=== PATIENT | male | born 1995 | race Caucasian/White ===

== ENCOUNTER 2024-04-14 19:52 | Emergency (ER) | payer OTHER ==
[~2024-04-14] VITALS: Ht 185.4 cm; Wt 119.7 kg
[2024-04-14] MEDS ORDERED: ASPIRIN 81 MG CHEW PO ONE (20:15)
[2024-04-14] MEDS ORDERED: NITROGLYCERIN PACKET TOP ONE (20:15)
[2024-04-14 20:28] LABS: BASOPHILS 0.7 % (0-2); EOSINOPHILS 1.2 % (0-6); HEMATOCRIT 42.4 % (35.0-50.0); HEMOGLOBIN 14.7 g/dL (12.0-18.0); LYMPHOCYTES 33.3 % (24-44); MCH 30.2 (27-36); MCHC 34.7 g/dl (30-36); MCV 86.9 fl (81-99); MONOCYTES 9.2 % (0-12); NEUTROPHILS 55.6 % (39-80); PLATELET COUNT 218 K/uL (140-440); RBC 4.88 M/ul (4.3-5.7)
[2024-04-14 20:40] LABS: INR 0.99 (0.80-1.30)
[2024-04-14 20:42] LABS: PARTIAL THROMBOPLASTIN TIME 30.1 Sec (22.9-41.3)
[2024-04-14 20:52] LABS: ALBUMIN 3.9 g/dL (3.4-5.0); ALBUMIN/GLOBULIN RATIO 0.95 (1.1-2.4); ALKALINE PHOSPHATASE 85 U/L (46-116); ALT (SGPT) 70 U/L (14-59); ANION GAP 10.9 (7-21); AST (SGOT) 27 U/L (15-37); BILIRUBIN, TOTAL 0.3 ng/dL (0.2-1.0); BUN/CREATININE RATIO 13.09 (6.0-28.6); CALCIUM 9.1 mg/dL (8.5-10.1); CARBON DIOXIDE 28 mmol/L (21-32); CHLORIDE 101 mmol/L (98-107); CREATININE, SERUM 0.84 mg/dL (0.70-1.30); GLOMERULAR FILTRATION RATE,EST 123 mL/min (>60); MAGNESIUM 2.1 mg/dL (1.8-2.4); POTASSIUM 3.9 mmol/L (3.5-5.1); UREA NITROGEN 11 mg/dL (7-18)
[2024-04-14] MEDS ORDERED: CYCLOBENZAPRINE10 MG PO (21:45)
[2024-04-14 21:55] VITALS: BP 122/86
--- NOTE | 2024-04-16 14:59 | EKG ---
[facility] [address] [facility] [place] [address] Signed Normal sinus rhythm Inferior infarct , age undetermined Abnormal ECG No previous ECGs available Confirmed by Alaina Kenny MD ([id number]) on 04/16/2024 2:59:33 PM Electronically Signed By: ALAINA KENNY MD 04/16/24 1459 PATIENT NAME: DODIE MONTEIRO Electrocardiogram DATE OF : [birth year] PHYSICIAN: ALAINA KENNY MD REPORT #: [id number] REPORT IS CONFIDENTIAL AND NOT TO BE RELEASED WITHOUT AUTHORIZATION
== END 2024-04-14 21:53 | disposition home or self-care (01) ==
LOC: ED 19:52
PROVIDERS: Family Medicine
DX: R07.89 Other chest pain (principal); J45.909 Unspecified asthma, uncomplicated; I25.2 Old myocardial infarction; Z91.013 Allergy to seafood
CPT/HCPCS: 36415; 71045; 80053; 83735; 83880; 84484; 85025; 85379; 85610; 85730; 93005; 93010; 99285-25; A9270